=== PATIENT | female | born 1940 | race Caucasian/White ===

== ENCOUNTER 2016-06-20 16:48 | Inpatient (IN) ==
[2016-06-20] MEDS ORDERED: 0.9 % Sodium Chloride 1,000 ML IVC ONE (17:07)
[2016-06-20] MEDS ORDERED: Ipratropium/Albuterol Neb 3 ML IH ONE (17:08)
[2016-06-20 17:28] LABS: Hematocrit 38.7 % (35.3-44.9); Mean Corpuscular HGB Conc 33.6 g/dL (31.6-35.5); Mean Corpuscular Hemoglobin 31.1 pg (28.0-33.3); Mean Corpuscular Volume 92.6 fL (83.0-100.0); Mean Platelet Volume 10.5 fL (9.4-12.4); Platelet Count 260 K/mcL (140-400); Red Blood Count 4.18 M/mcL (3.82-4.97); Red Cell Distribution Width 12.5 % (11.5-14.5)
--- NOTE | 2016-06-20 17:29 | Emergency Department Note ---
Disposition Clinical Impression: Hypoxia Pneumonia Qualifiers: Pneumonia type: due to unspecified organism Laterality: bilateral Lung location : upper lobe of lung Qualified Code(s): J18.9 - Pneumonia, unspecified organism Disposition: Admitted As Inpatient Condition: Fair Referrals: Cornelius Parks MD [Primary Care Provider] - Forms: ED Satisfaction Letter General Adult HPI - General Chief complaint: ED Altered Mental Status Stated complaint: ZEB, AMS Source: patient Mode of arrival: wheelchair Limitations: no limitations Nursing Notes Reviewed: Yes Vital Signs Reviewed: Yes - History of Present Illness HPI Narrative: 75-year-old female who reports she has had 4 days of worsening shortness of breath, cough, purulent sputum. She says that she thinks she has pneumonia. She has not seen a primary care provider for this and is not on antibiotics. She has a medical history significant for COPD, hypertension, chronic pain. She denies having a fever but has said that she has felt chilled. She denies any change in her bowel movements or difficulty urinating. Radiation: non-radiation Pain Scale: 0 Consistency: constant Improves with: nothing Worsens with: other Associated symptoms: Reports: denies other symptoms Treatments Prior to Arrival: none (Exertion) - Related Data Home Medications Medication Instructions Recorded Confirmed Lisinopril 12/18/14 02/28/15 Proair Hfa 12/18/14 02/28/15 Synthroid 12/18/14 02/28/15 LORazepam 02/28/15 02/28/15 Previous Rx's Medication Instructions Recorded Doxycycline 100 mg PO BID #14 capsule 08/20/15 GuaiFENesin ER [Mucinex] 1,200 mg PO BID #20 tbbp.12hr 08/20/15 PredniSONE [Prednisone] 60 mg PO DAILY 5 Days 08/20/15 Benzonatate [Tessalon] 100 - 200 mg PO TID PRN #40 capsule 09/11/15 Doxycycline 100 mg PO BID #20 capsule 09/11/15 PredniSONE [Prednisone] See Taper PO DAILY #18 tablet 09/11/15 Doxycycline 100 mg PO BID #20 capsule 09/23/15 PredniSONE [Prednisone] 20 mg PO DAILY #19 tablet 09/23/15 Albuterol Sulfate [Albuterol 2 puff IH QID 2 Days 10/16/15 Inhaler] Doxycycline 100 mg PO BID 10 Days 10/16/15 PredniSONE 20 mg PO BID 5 Days 10/16/15 Benzonatate [Tessalon] 200 mg PO TID PRN #30 capsule 10/29/15 Doxycycline 100 mg PO BID #20 capsule 10/29/15 GuaiFENesin ER [Mucinex] 1,200 mg PO BID #20 tbbp.12hr 10/29/15 PredniSONE [Prednisone] 20 mg PO BID 10 Days 10/29/15 Doxycycline 100 mg PO BID #20 capsule 12/13/15 PredniSONE See Taper PO DAILY #18 tablet 12/13/15 Albuterol Sulfate [Albuterol 2 puff IH QID 2 Days 01/07/16 Inhaler] Doxycycline 100 mg PO BID 10 Days 01/07/16 PredniSONE 20 mg PO BID 5 Days 01/07/16 Allergies Allergy/AdvReac Type Severity Reaction Status Date / Time codeine Allergy Abdominal Verified 02/28/15 17:42 Pain methyl salicylate Allergy Rash Verified 02/28/15 17:42 nalbuphine Allergy Difficulty Verified 02/28/15 17:42 Breathing Opioids-Meperidine and Allergy Difficulty Verified 02/28/15 17:42 Related Breathing penicillin G procaine Allergy Rash Verified 02/28/15 17:42 propoxyphene Allergy Dizziness Verified 02/28/15 17:42 Sulfa (Sulfonamide Allergy Nausea Verified 02/28/15 17:42 Antibiotics) All systems ED: reviewed and negative except as stated. Constitutional: Denies: fever Eyes: Denies: vision change ENT ED: Denies: throat pain Cardiovascular: Denies: chest pain Respiratory: Reports: cough, dyspnea, wheezes Gastrointestinal: Denies: abdominal pain, nausea, vomiting, diarrhea Musculoskeletal: Denies: neck pain Integumentary: Denies: rash Neurological: Denies: headache Endocrine: Reports: fatigue Past Medical History - Past Medical History Medical history: Reports: COPD, hypertension Surgical history: Reports: other (cardiac ablasion) - Social History Smoking Status: Current every day smoker Smokeless Tobacco Status: No Alcohol use: Reports: none Drug use: Reports: none Physical Exam - General Limitations: no limitations General appearance: alert - Head Head exam: atraumatic - Eye Eye exam: Present: normal appearance, PERRL, EOMI - ENT ENT exam: normal exam - Chest Chest inspection: Present: normal inspection - Respiratory Respiratory exam: Present: other (Course lung sounds on the right side. She is not in respiratory distress without accessory muscle use.) - Abdominal Exam Abdominal exam: Present: soft, Non-Tender - Extremities Exam Extremities exam: Present: normal inspection - Back Exam Back exam: Present: normal inspection - Neurological Exam Neurological exam: Present: alert, oriented X3 - Psychiatric Psychiatric exam: Present: normal affect, normal mood - Skin Skin exam: Present: warm, dry Course Course Narrative: 75-year-old female with symptoms concerning for pneumonia with cough, shortness of breath, increased sputum production. On my physical exam she has right sided coarse breath sounds. Her SPO2 and arrival was 80% on room air. She states she is supposed to be on oxygen at home but has not been using it for a long time. She is having dyspnea with exertion. We will obtain blood cultures and a lactate, chest x-ray and likely start antibiotics. Hemodynamically she is mildly tachycardic at about 105 but her blood pressures maintained at 120 systolic. - Reevaluation(s) Reevaluation #1: pneumonia present on CXR. Clinical picture and CXR lead to pneumonia. Will treat with levaquin and admit. Reevaluation #2: Initial blood pressure reading was in triage was rechecked when she got back to a room was 8020 systolic. The initial blood pressure reading we have not been able to repeat since she has been back here. She also has had improvement in her heart rate. I do not believe that this was accurate pressure obtained in triage. Vital Signs Temperature 98.2 F 06/20/16 16:49 Pulse Rate 109 06/20/16 16:49 Respiratory Rate 18 06/20/16 16:49 Blood Pressure 88/47 06/20/16 16:49 O2 Sat by Pulse Oximetry 85 L 06/20/16 16:49 Temperature 98.2 F 06/20/16 16:49 Pulse Rate 89 06/20/16 18:05 Respiratory Rate 18 06/20/16 18:05 Blood Pressure 111/52 06/20/16 18:05 O2 Sat by Pulse Oximetry 96 06/20/16 18:05 Oxygen Delivery Oxygen Delivery Nasal Cannula Medical Decision Making - Medical Records Medical records reviewed: Yes I reviewed the patient's medical records. - Lab Data Lab results reviewed: Yes I reviewed the patient's lab results. Result diagrams: 06/20/16 17:19 06/20/16 17:19 Lab Results 0206/20/16 06/20/16 Range/Units 17:19 17:19 17:19 WBC 9.8 (4.3-11.1) K/mcL RBC 4.18 (3.82-4.97) M/mcL Hgb 13.0 (11.5-15.4) g/dL Hct 38.7 (35.3-44.9) % MCV 92.6 (83.0-100.0) fL MCH 31.1 (28.0-33.3) pg MCHC 33.6 (31.6-35.5) g/dL RDW 12.5 (11.5-14.5) % Plt Count 260 (140-400) K/mcL MPV 10.5 (9.4-12.4) fL Seg Neutrophils % 34.0 % Band Neutrophils % 30.0 H (0-4) % Lymphocytes % 28.0 % Monocytes % 4.0 % Metamyelocytes % 4.0 H (0) % Neutrophils # 6.3 (1.6-8.9) K/mcL Lymphocytes # 2.7 (0.6-4.6) K/mcL Monocytes # 0.4 (0.0-1.3) K/mcL Reactive Lymphocytes Present A (Not Present) Platelet Estimate Normal (Normal) PT 12.3 H (9.4-12.1) Seconds INR 1.1 APTT 32.0 (26.0-36.0) Seconds Sodium 134 L (136-145) mEq/L Potassium 3.7 (3.5-4.5) mEq/L Chloride 98 (98-109) mEq/L Carbon Dioxide 24 (19-29) mEq/L BUN 24 H (7-20) mg/dL Creatinine 0.94 (0.57-1.11) mg/dL Est GFR ( Amer) > 60 (> 60) Est GFR (Non-Af Amer) 58 L (> 60) BUN/Creatinine Ratio 26 (6-26) Glucose 186 H (70-99) mg/dL Calculated Osmolality 287 (280-300) Lactic Acid (0.5-2.2) mmol/L Calcium 9.1 (8.6-10.8) mg/dL Magnesium 1.6 (1.6-2.6) mg/dL Troponin I (0-0.03) ng/mL 06/20/16 06/20/16 Range/Units 17:19 17:19 WBC (4.3-11.1) K/mcL RBC (3.82-4.97) M/mcL Hgb (11.5-15.4) g/dL Hct (35.3-44.9) % MCV (83.0-100.0) fL MCH (28.0-33.3) pg MCHC (31.6-35.5) g/dL RDW (11.5-14.5) % Plt Count (140-400) K/mcL MPV (9.4-12.4) fL Seg Neutrophils % % Band Neutrophils % (0-4) % Lymphocytes % % Monocytes % % Metamyelocytes % (0) % Neutrophils # (1.6-8.9) K/mcL Lymphocytes # (0.6-4.6) K/mcL Monocytes # (0.0-1.3) K/mcL Reactive Lymphocytes (Not Present) Platelet Estimate (Normal) PT (9.4-12.1) Seconds INR APTT (26.0-36.0) Seconds Sodium (136-145) mEq/L Potassium (3.5-4.5) mEq/L Chloride (98-109) mEq/L Carbon Dioxide (19-29) mEq/L BUN (7-20) mg/dL Creatinine (0.57-1.11) mg/dL Est GFR ( Amer) (> 60) Est GFR (Non-Af Amer) (> 60) BUN/Creatinine Ratio (6-26) Glucose (70-99) mg/dL Calculated Osmolality (280-300) Lactic Acid 1.2 (0.5-2.2) mmol/L Calcium (8.6-10.8) mg/dL Magnesium (1.6-2.6) mg/dL Troponin I 0.03 (0-0.03) ng/mL - Radiology Data Radiology results reviewed: Yes I reviewed the patient's radiology results. - EKG Data EKG #1 EKG attestation: Yes I reviewed and interpreted this EKG. EKG shows normal: sinus rhythm (100) Rate: tachycardia Enigma/QRS: normal Interpretation: other (Prior EKG demonstrates diffuse T-wave inversions which were present in the inferior and anterior lateral leads. This appears to be resolved with her most current EKG) Critical Care Time Critical Care Time: Yes Total Critical Care Time: 35 Attestation: Critical care time 35 minutes managing patient's pneumonia and hypoxia. Attestation Statement - Attestation Attestation: Patient was seen with resident physician. I reviewed the history, physical, assessment and plan, and agree with the findings. I also personally evaluated this patient and had [id number] time with this patient. 75-year-old female presents to emergency department with cough sputum production and shortness of breath. She says the symptoms are getting worse for the last couple days. She is not actually checked for fever but she says she has felt chilled. She is concerned she might have pneumonia. She did say she has had the pneumonia shot this year. She denies abdominal symptoms or nausea or vomiting. Patient notes that she was told by a photographer apprentice about a year ago that she no longer needed her home O2. On examination initial vital signs patient was significantly hypoxic. ENT is unremarkable. Lungs show crackles throughout with good air exchange. Heart is regular rhythm and rate. Abdomen is soft and nontender. Extremity is unremarkable. Neurologically patient is alert and oriented. Chest x-ray revealed bilateral pneumonia. The lab tests did not show significant abnormalities. EKG also did not show acute changes. Patient was started on IV antibiotics, blood cultures were drawn. Hospitalist was notified for need for admission for auction therapy as well as IV antibiotics for community-acquired pneumonia. Hospitalization was arranged. I agree with the resident physician assessment and plan.
[2016-06-20 17:41] LABS: BUN/Creatinine Ratio 26 (6-26); Blood Urea Nitrogen 24 mg/dL (7-20); Calcium 9.1 mg/dL (8.6-10.8); Carbon Dioxide 24 mEq/L (19-29); Chloride 98 mEq/L (98-109); Glucose 186 mg/dL (70-99); INR 1.1; Magnesium 1.6 mg/dL (1.6-2.6); Osmolality,Calculated 287 (280-300); Potassium 3.7 mEq/L (3.5-4.5); Prothrombin Time 12.3 Seconds (9.4-12.1); Sodium 134 mEq/L (136-145); eGFR For African Americans > 60 (> 60); eGFR For Non-African Americans 58 (> 60)
[2016-06-20] MEDS ORDERED: Levofloxacin 750 MG/150 ML 750 MG/150 ML BAG IVPB ONE (17:45)
[2016-06-20 18:04] LABS: Lymphocytes # 2.7 K/mcL (0.6-4.6); Monocytes # 0.4 K/mcL (0.0-1.3); Neutrophils # 6.3 K/mcL (1.6-8.9); Platelet Estimate Normal (Normal); Reactive Lymphocytes Present (Not Present)
[2016-06-20] MEDS ORDERED: Acetaminophen 325 MG TABLET PO PRN (19:33)
[2016-06-20] MEDS ORDERED: Ondansetron 4 MG/2 ML VIAL IVP PRN (19:33)
[2016-06-20] MEDS ORDERED: Naloxone 0.4 MG/ML INJ IVP PRN (19:33)
[2016-06-20] MEDS ORDERED: Ipratropium/Albuterol Neb 3 ML IH PRN (19:59)
[2016-06-20] MEDS ORDERED: GuaiFENesin Liq 200 MG/10 ML UDC PO PRN (20:00)
--- NOTE | 2016-06-20 20:14 | Internal Med History&Physical ---
Date of Encounter: 06/20/16 Time of Encounter: 19:00 Assessment and Plan (1) Change in mental status Current visit: Yes Status: Resolved Likely secondary to underlying PNA Mental status back to baseline, however generalized weakness persists due to PNA continue treatment as listed below Qualifiers: Altered mental status type: unspecified Qualified Code(s): R41.82 - Altered mental status, unspecified (2) Community acquired pneumonia Current visit: Yes Status: Acute CXR consistent with PNA Given the bandemia will treat with abx continue Levaquin monitor O2 saturation O2 supplementation as needed follow up blood cultures (3) COPD (chronic obstructive pulmonary disease) Current visit: Yes Status: Chronic Not in acute exacerbation Will continue home medications after verification Continue bronchodilators as needed continue to monitor O2 sat O2 supplementation as needed Qualifiers: COPD type: unspecified COPD Qualified Code(s): J44.9 - Chronic obstructive pulmonary disease, unspecified (4) Hypertension Current visit: Yes Status: Chronic BP within acceptable range Will restart home medications after verification Qualifiers: Hypertension type: essential hypertension Qualified Code(s): I10 - Essential (primary) hypertension (5) Hypothyroidism Current visit: Yes Status: Chronic continue home medications Qualifiers: Hypothyroidism type: unspecified Qualified Code(s): E03.9 - Hypothyroidism , unspecified (6) Hyperglycemia Current visit: Yes Status: Acute No documented history of DM Last A1C in Feb 2016: 5.6 Will repeat A1C in am continue to monitor blood glucose (7) Cigarette smoker Current visit: Yes Status: Chronic Smoking cessation counseling provided patient not ready to quit at this time refused nicotine replacement therapy (8) DVT prophylaxis Current visit: Yes Status: Acute Heparin SQ Internal Medicine - H&P: HPI Chief complaint: shortness of breath, change in mental status Admitted From: Home Plans for Post Hospital Care: Home History of present illness: Ms. Mckeon is a 75 year old female with PMH of hypertension, COPD, hypothyroidism who presents to the ER for evaluation of shortness of breath, change in mental status. Patient is AAO x 3 and resting in bed but appears to be very weak due to which history was obtained from the son present at bedside. He states that the patient's grandson lives with her and he has been noticing her to be weak and confused over the weak. Patient reported of feeling sick along with cough and congestion. Prior to last week, she is independent, still works and drives. She has home oxygen but does not use it. As per son, patient was noted to be severely short of breath and confused earlier today which prompted her visit to the ER. AT this time, patient states she feels very cold but denies any headache, chest pain, sob, abd pain, n/v, fever at this time. She is an every day smoker. Past Med Surg Social Fam HX - Past Medical History Medical history: COPD, hypertension - Past Surgical History Surgical History: other (cardiac ablasion) - Social History Smoking Status: Current every day smoker Smokeless Tobacco Status: No Alcohol use: none Drug use: none Internal Medicine - H&P: Meds Lisinopril 12/18/14 [History] Proair Hfa 12/18/14 [History] Synthroid 12/18/14 [History] LORazepam 02/28/15 [History] Doxycycline 100 mg PO BID #14 capsule 08/20/15 [Rx] GuaiFENesin ER [Mucinex] 1,200 mg PO BID #20 tbbp.12hr 08/20/15 [Rx] PredniSONE [Prednisone] 60 mg PO DAILY 5 Days 08/20/15 [Rx] Benzonatate [Tessalon] 100 - 200 mg PO TID PRN #40 capsule 09/11/15 [Rx] Doxycycline 100 mg PO BID #20 capsule 09/11/15 [Rx] PredniSONE [Prednisone] See Taper PO DAILY #18 tablet 09/11/15 [Rx] Doxycycline 100 mg PO BID #20 capsule 09/23/15 [Rx] PredniSONE [Prednisone] 20 mg PO DAILY #19 tablet 09/23/15 [Rx] Albuterol Sulfate [Albuterol Inhaler] 2 puff IH QID 2 Days 10/16/15 [Rx] Doxycycline 100 mg PO BID 10 Days 10/16/15 [Rx] PredniSONE 20 mg PO BID 5 Days 10/16/15 [Rx] Benzonatate [Tessalon] 200 mg PO TID PRN #30 capsule 10/29/15 [Rx] Doxycycline 100 mg PO BID #20 capsule 10/29/15 [Rx] GuaiFENesin ER [Mucinex] 1,200 mg PO BID #20 tbbp.12hr 10/29/15 [Rx] PredniSONE [Prednisone] 20 mg PO BID 10 Days 10/29/15 [Rx] Doxycycline 100 mg PO BID #20 capsule 12/13/15 [Rx] PredniSONE See Taper PO DAILY #18 tablet 12/13/15 [Rx] Albuterol Sulfate [Albuterol Inhaler] 2 puff IH QID 2 Days 01/07/16 [Rx] Doxycycline 100 mg PO BID 10 Days 01/07/16 [Rx] PredniSONE 20 mg PO BID 5 Days 01/07/16 [Rx] Allergies codeine Allergy (Verified 02/28/15 17:42) Abdominal Pain methyl salicylate Allergy (Verified 02/28/15 17:42) Rash nalbuphine Allergy (Verified 02/28/15 17:42) Difficulty Breathing Opioids-Meperidine and Related Allergy (Verified 02/28/15 17:42) Difficulty Breathing penicillin G procaine Allergy (Verified 02/28/15 17:42) Rash propoxyphene Allergy (Verified 02/28/15 17:42) Dizziness Sulfa (Sulfonamide Antibiotics) Allergy (Verified 02/28/15 17:42) Nausea All Systems PM: A 10-system review of systems was performed and is negative for pertinent findings except as documented above in the HPI. - Constitutional Constitutional: as per HPI - Constitutional Vitals: Temp Pulse Resp BP Pulse Ox 98.4 F 82 18 107/56 90 L 06/20/16 19:53 06/20/16 19:53 06/20/16 19:53 06/20/16 19:53 06/20/16 19:53 General appearance: Present: cooperative, A&O X 3 (frail, weak), no acute distress, answers questions appropriately - Head Head exam: Present: atraumatic, normocephalic - Eye Eye exam: Present: conjuntiva pink, sclera anicteric - Respiratory Respiratory exam: Absent: respiratory distress, wheezes (coarse breath sounds bilaterally) - Cardiovascular Cardiovascular exam: Present: RRR, +S1, +S2 - GI/Abdominal GI/Abdominal exam: Present: normal bowel sounds, soft. Absent: distended, tenderness - Extremities Exam Extremities exam: Present: warm, radial pulses palpable and symetrical. Absent : calf tenderness, pedal edema, tenderness - Neurological Exam Neurological exam: Present: alert, oriented X3, no focal deficits - Psychiatric Psychiatric exam: Present: normal affect, normal mood Internal Med - H&P Results - Labs CBC & Chem 7: 06/20/16 17:19 06/20/16 17:19
[2016-06-20] MEDS: Ipratropium/Albuterol Neb 3 ML IH SCH (22:34)
[2016-06-20] MEDS: *HR* HYDROcodone/Acet 5/325 mg TABLET PO PRN (23:09)
[2016-06-20] MEDS: 0.9 % Sodium Chloride 1,000 ML IVC SCH (23:10)
[2016-06-20] MEDS: traZODone 50 MG TABLET PO SCH (23:10)
[2016-06-21 03:22] LABS: Hemoglobin 11.5 g/dL (11.5-15.4); Mean Corpuscular HGB Conc 32.9 g/dL (31.6-35.5); Mean Corpuscular Hemoglobin 31.1 pg (28.0-33.3); Mean Corpuscular Volume 94.6 fL (83.0-100.0); Mean Platelet Volume 10.5 fL (9.4-12.4); Platelet Count 235 K/mcL (140-400); Red Cell Distribution Width 12.6 % (11.5-14.5)
[2016-06-21 03:31] LABS: Hemoglobin A1C 5.5 %
[2016-06-21 03:47] LABS: BUN/Creatinine Ratio 28 (6-26); Blood Urea Nitrogen 22 mg/dL (7-20); Calcium 8.3 mg/dL (8.6-10.8); Carbon Dioxide 26 mEq/L (19-29); Chloride 103 mEq/L (98-109); Glucose 76 mg/dL (70-99); Magnesium 1.6 mg/dL (1.6-2.6); Osmolality,Calculated 288 (280-300); Phosphorous 2.4 mg/dL (2.3-4.7); Potassium 3.4 mEq/L (3.5-4.5); Sodium 138 mEq/L (136-145); eGFR For African Americans > 60 (> 60); eGFR For Non-African Americans > 60 (> 60)
[2016-06-21] MEDS: Ipratropium/Albuterol Neb 3 ML IH SCH ×4 (03:48→22:24)
[2016-06-21 03:51] LABS: Large Platelets Present (Not Present); Lymphocytes # 3.6 K/mcL (0.6-4.6); Monocytes # 0.5 K/mcL (0.0-1.3); Neutrophils # 4.1 K/mcL (1.6-8.9); Platelet Clumps Few (Not Present); Toxic Granulation Present (Not Present)
[2016-06-21 03:52] LABS: Reactive Lymphocytes Present (Not Present)
[2016-06-21] MEDS: *HR* Heparin 5,000 UNIT/ML VIAL SQ SCH ×2 (07:22→17:47)
[2016-06-21] MEDS: 0.9 % Sodium Chloride 1,000 ML IVC SCH ×2 (07:22→17:49)
[2016-06-21] MEDS ORDERED: Levofloxacin 500 MG/100 ML 500 MG/100 ML BAG IVPB SCH (09:00)
[2016-06-21] MEDS ORDERED: *HR* HYDROcodone/Acet 5/325 mg TABLET PO PRN (12:06)
--- NOTE | 2016-06-21 12:08 | Internal Med Progress Note ---
Date of Encounter: 06/21/16 Time of Encounter: 12:08 - Assessment and plan (1) Community acquired pneumonia Current Visit: Yes Status: Acute Assessment and plan: Cultures are so far negative. We will send sputum for culture. Continue levofloxacin. Moderate risk for complications. (2) Hyperglycemia Current Visit: Yes Status: Resolved Assessment and plan: This has resolved. A1c level is 5.5%. (3) Hypoxia Current Visit: Yes Status: Acute Assessment and plan: Likely from pneumonia. Incentive spirometry. Wean FiO2 as tolerated. Will evaluate for home oxygen prior to discharge. (4) COPD (chronic obstructive pulmonary disease) Current Visit: Yes Status: Chronic Assessment and plan: Not in acute exacerbation. Continue nebulizer treatments as needed. Qualifiers: COPD type: unspecified COPD Qualified Code(s): J44.9 - Chronic obstructive pulmonary disease, unspecified (5) Cigarette smoker Current Visit: Yes Status: Chronic (6) Hypertension Current Visit: Yes Status: Chronic Assessment and plan: Well-controlled Qualifiers: Hypertension type: essential hypertension Qualified Code(s): I10 - Essential (primary) hypertension (7) Change in mental status Current Visit: Yes Status: Resolved Assessment and plan: This has resolved Qualifiers: Altered mental status type: unspecified Qualified Code(s): R41.82 - Altered mental status, unspecified (8) DVT prophylaxis Current Visit: Yes Status: Acute Assessment and plan: Subcutaneous heparin - Subjective Interval history: Patient is feeling better today. Still requiring O2 supplementation. Continues to have cough. There is blood tinged sputum. Also complains of pleuritic pain in her lower ribs on the right side. - Constitutional Vitals: Temp Pulse Resp BP Pulse Ox 97.2 F L 82 16 108/63 98 06/21/16 10:47 06/21/16 10:47 06/21/16 10:58 06/21/16 10:47 06/21/16 10:58 General appearance: Present: cooperative, A&O X 3, no acute distress, answers questions appropriately - Neck Neck exam general surgery: Present: supple, trachea midline. Absent: lymphadenopathy - Respiratory Respiratory exam: Present: prolonged expiratory phase. Absent: accessory muscle use, rales, rhonchi, wheezes - Cardiovascular Cardiovascular exam: Present: RRR, +S1, +S2. Absent: diastolic murmur, gallop, rubs, systolic murmur - GI/Abdominal GI/Abdominal exam: Present: normal bowel sounds, soft, no peritoneal signs. Absent: distended, tenderness - Extremities Exam Extremities exam: Present: warm, radial pulses palpable and symetrical. Absent : calf tenderness, cyanotic, pedal edema - Neurological Exam Neurological exam: Present: alert, oriented X3, no focal deficits. Absent: facial droop, speech deficit Internal Medicine: Result - Labs CBC & Chem 7: 06/21/16 02:51 06/21/16 02:51 Labs: Short CBC 06/21/16 Range/Units 02:51 WBC 8.1 (4.3-11.1) K/mcL Hgb 11.5 D (11.5-15.4) g/dL Hct 35.0 L (35.3-44.9) % Plt Count 235 (140-400) K/mcL Neutrophils # 4.1 (1.6-8.9) K/mcL BMP 06/21/16 02:51 Sodium 138 Potassium 3.4 L Chloride 103 Carbon Dioxide 26 BUN 22 H Creatinine 0.79 Glucose 76 Calcium 8.3 L - ABG Interpretation ABG results: PT/INR, D-dimer PT 12.3 Seconds (9.4-12.1) H 06/20/16 17:19 Consult Discharge Plan - Plan Referrals: Cornelius Parks MD [Primary Care Provider] - - Attending Attestation This document has been at least partially created by [email or web address] recognition technology by Dr. Brooke. Errors in grammar, wording or other phrases may exist. If errors are found after the documentation is signed, they will be addressed individually in the addendum section of this document when appropriate.
[2016-06-21] MEDS: Aspirin Enteric Coated 81 MG Tablet PO SCH (13:30)
[2016-06-21] MEDS: Lisinopril 20 MG TABLET PO SCH (13:30)
[2016-06-21] MEDS: hydroCHLOROthiazide 25 MG TABLET PO SCH (13:30)
[2016-06-21 16:52] LABS: Bilirubin,Urine Negative (Negative); Blood,Urine Large (Negative); Clarity,Urine Clear (Clear); Color,Urine Yellow (Yellow); Glucose,Urine (UA) 100 mg/dL (Normal); Ketones,Urine Negative (Negative); Leukocyte Esterase,Urine Negative (Negative); Nitrite,Urine Negative (Negative); Protein,Urine Negative (Neg-Trace); Specific Gravity,Urine 1.012 (1.010-1.025); Urobilinogen,Urine Normal (Normal)
[2016-06-21 16:54] LABS: Hyaline Casts,Urine None Seen per lpf (None-Few); WBC,Urine 0-3 per hpf (0-3)
[2016-06-21 17:05] LABS: RBC,Urine 15-30 per hpf (0-3); Squamous Epithelial Cell,Urine Few per lpf (None-Few)
[2016-06-21 17:06] LABS: Bacteria,Urine Few per hpf (None-Few)
[2016-06-21] MEDS: traZODone 50 MG TABLET PO SCH (20:42)
[2016-06-21] MEDS: *HR* HYDROcodone/Acet 5/325 mg TABLET PO PRN (20:46)
[2016-06-22] MEDS: 0.9 % Sodium Chloride 1,000 ML IVC SCH ×4 (00:26→22:38)
[2016-06-22] MEDS: Ipratropium/Albuterol Neb 3 ML IH SCH ×5 (03:40→22:10)
[2016-06-22] MEDS: *HR* Heparin 5,000 UNIT/ML VIAL SQ SCH ×2 (06:11→22:38)
[2016-06-22] MEDS: Lisinopril 20 MG TABLET PO SCH (09:29)
[2016-06-22] MEDS: hydroCHLOROthiazide 25 MG TABLET PO SCH (09:29)
[2016-06-22] MEDS: Aspirin Enteric Coated 81 MG Tablet PO SCH (09:29)
--- NOTE | 2016-06-22 09:45 | Discharge Summary ---
Date of Encounter: 06/22/16 Time of Encounter: 08:00 - Discharge Diagnosis (1) Community acquired pneumonia Priority: Primary Status: Acute (2) Hyperglycemia Priority: Secondary Status: Resolved (3) Hypoxia Priority: Secondary Status: Acute (4) COPD (chronic obstructive pulmonary disease) Priority: Secondary Status: Chronic Qualifiers: COPD type: COPD with acute lower respiratory infection Qualified Code(s): J44.0 - Chronic obstructive pulmonary disease with acute lower respiratory infection (5) Cigarette smoker Priority: Secondary Status: Chronic (6) Hypertension Priority: Secondary Status: Chronic Qualifiers: Hypertension type: essential hypertension Qualified Code(s): I10 - Essential (primary) hypertension (7) DVT prophylaxis Priority: Secondary Status: Acute (8) Altered mental status Priority: Secondary Status: Acute Comments: From pneumonia Qualifiers: Altered mental status type: transient alteration of awareness Qualified Code(s): R40.4 - Transient alteration of awareness - Discharge Medications Prescriptions: Levofloxacin 750 mg PO DAILY #10 tablet Home Medications: Albuterol Sulfate [Proair Hfa] 1 puff IH BID 06/20/16 [History] Aspirin Enteric Coated [Aspirin EC] 81 mg PO QAM 06/20/16 [History] Calcium Carbonate/Vitamin D3 [Calcium 600 + Vit D Tablet] 1 tab PO BID 06/20/16 [History] Diphenhydramine HCl [Restfully Sleep] 25 mg PO BID 06/20/16 [History] Docusate Sodium [Stool Softener] 100 mg PO BID 06/20/16 [History] Ferrous Sulfate [Iron] 325 mg PO BID 06/20/16 [History] Fluticasone/Salmeterol [Advair 250-50 Diskus] 1 puff IH BID 06/20/16 [History] HYDROcodone/Acet 5/325 mg [[place] 5-325 mg] 1 tab PO Q8HR PRN 06/20/16 [History] Hydrochlorothiazide 25 mg PO DAILY 06/20/16 [History] LORazepam [Ativan] 1 mg PO BID 06/20/16 [History] Levothyroxine [Synthroid] 112 mcg PO QDPC 06/20/16 [History] Lisinopril [Zestril] 20 mg PO DAILY 06/20/16 [History] Multivit-Min/FA/Lycopen/Lutein [Centrum Silver Tablet] 1 tab PO QDPC 06/20/16 [ History] Omeprazole Magnesium [Prilosec Otc] 20 mg PO BID 06/20/16 [History] TraZODone 100 mg PO HS PRN 06/20/16 [History] Alendronate Sodium [Fosamax] 70 mg PO QWEEK 06/21/16 [History] Ipratropium/Albuterol Neb [Duoneb] 3 ml IH Q6HR 06/21/16 [History] Levofloxacin 750 mg PO DAILY #10 tablet 06/22/16 [Rx] Allergies/Adverse Reactions: Allergies codeine Allergy (Verified 02/28/15 17:42) Abdominal Pain methyl salicylate Allergy (Verified 02/28/15 17:42) Rash nalbuphine Allergy (Verified 02/28/15 17:42) Difficulty Breathing Opioids-Meperidine and Related Allergy (Verified 02/28/15 17:42) Difficulty Breathing penicillin G procaine Allergy (Verified 02/28/15 17:42) Rash propoxyphene Allergy (Verified 02/28/15 17:42) Dizziness Sulfa (Sulfonamide Antibiotics) Allergy (Verified 02/28/15 17:42) Nausea Date of admission: 06/20/16 18:21 Primary care physician: Cornelius Parks MD Consults: 06/22/16 09:40 Consult to Staff Nurse [CONS] Routine Reason for SW Consult: Home oxygen Discharging clinician: Marc Brooke Anticipated date of discharge: 06/22/16 - Patient Status Disposition: Home, Self-Care Condition: Good Functional capacity at discharge: independent ambulation Overall status at discharge: patient is progressing back to baseline - Discharge Instructions Follow Up With: Luis Bynum MD [Partnered Physician] - 06/30/16 2:00 pm - Diet and Activity Activity: wear oxygen at all times Diet: low fat, low cholesterol, low salt diet Hospital course: Ms. Mckeon is a 75 year old female with history of COPD he was admitted here after presented with some confusion and was diagnosed with pneumonia involving bilateral upper lobes as her chest x-ray showed patchy infiltrates in the upper lobes. She was treated for this with levofloxacin with good improvement in her symptoms. She did not have symptoms or signs of acute COPD. Her altered mental status resolved soon after presentation. She is now doing much better and is stable to be discharged home. She does have home oxygen but she only uses it as needed. She is recommended to use it all the time for his COPD. She will follow up with her primary care provider and will need a repeat chest x -ray to look for resolution of her pain status. Otherwise she may need further workup including pulmonology consult. Patient does use home oxygen but only at bedtime. She was evaluated here [id number] and also was evaluated for home oxygen. Her room air sats were 86% with minimal walking. She does require continuous home oxygen at 4 L/m and prescription for the same has been provided to the patient. - Time Spent with Patient Total time spent providing and/or coordinating discharge services: Less than 30 minutes (25 min) - Constitutional Vitals: Temp Pulse Resp BP Pulse Ox 97.9 F 92 15 133/67 95 06/22/16 06:53 06/22/16 06:53 06/22/16 06:53 06/22/16 06:53 06/22/16 06:53 General appearance: Present: cooperative, A&O X 3, no acute distress, answers questions appropriately - Respiratory Respiratory exam: Present: prolonged expiratory phase. Absent: accessory muscle use, rales, rhonchi, wheezes - Cardiovascular Cardiovascular exam: Present: RRR, +S1, +S2. Absent: diastolic murmur, gallop, rubs, systolic murmur - GI/Abdominal GI/Abdominal exam: Present: normal bowel sounds, soft, no peritoneal signs. Absent: distended, tenderness - Extremities Exam Extremities exam: Present: warm, radial pulses palpable and symetrical. Absent : calf tenderness, cyanotic, pedal edema - Neurological Exam Neurological exam: Present: alert, no focal deficits. Absent: facial droop, speech deficit - Attending Attestation This document has been at least partially created by [employer] recognition technology by Dr. Brooke. Errors in grammar, wording or other phrases may exist. If errors are found after the documentation is signed, they will be addressed individually in the addendum section of this document when appropriate.
--- NOTE | 2016-06-22 17:25 | Electrocardiograph Report ---
[place] [id number] Test Date: 2016-06-20 Pat Name: Angela Mckeon Department: 104 Room: 3B13 Gender: F [employer]: : 1940 Requested By: Keanu Lutz Order Number: [id number] Reading MD: Kaitlin Romero Measurements Intervals [place] Rate: 100 P: 63 VA: 100 QRS: 81 QRSD: 85 T: 74 QT: 355 QTc: 412 Interpretive Statements SINUS TACHYCARDIA WITH SHORT VA INTERVAL WITH OCCASIONAL SUPRAVENTRICULAR PREMATURE COMPLEXES ABNORMAL RHYTHM ECG Electronically Signed On 06-22-2016 17:24:12 EST by Kaitlin Romero
[2016-06-22 17:50] LABS: ABG PCO2 57 mmHg (35-45); ABG PH 7.35 pH Units (7.32-7.45); ABG PO2 54 mmHg (85-104)
[2016-06-22 17:51] LABS: ABG Base Excess 4.5 mEq/L (-2.0 to 3.0); ABG HCO3 28.2 mEQ/L (21-27); ABG Oxygen Saturation 86 % (95-98); ABG TCO2 33.2 mEq/L (20-26); Blood Gas FiO2 36 %; Blood Gas Liter Flow 4 L/MIN
[2016-06-22] MEDS: traZODone 50 MG TABLET PO SCH (22:37)
[2016-06-22] MEDS ORDERED: *HR* LORazepam 1 MG TABLET PO ONE (22:53)
--- NOTE | 2016-06-22 22:58 | Event Note ---
Date of Encounter: 06/22/16 Time of Encounter: 17:45 Patient became confused this afternoon and so holding discharge. Will get Head CT and ABG.
[2016-06-23] MEDS: Ipratropium/Albuterol Neb 3 ML IH SCH ×4 (04:27→21:15)
[2016-06-23] MEDS: 0.9 % Sodium Chloride 1,000 ML IVC SCH (06:10)
[2016-06-23 08:42] LABS: BUN/Creatinine Ratio 13 (6-26); Calcium 8.1 mg/dL (8.6-10.8); Carbon Dioxide 31 mEq/L (19-29); Chloride 105 mEq/L (98-109); Glucose 99 mg/dL (70-99); Osmolality,Calculated 296 (280-300); Potassium 3.1 mEq/L (3.5-4.5); Sodium 144 mEq/L (136-145); eGFR For African Americans > 60 (> 60); eGFR For Non-African Americans > 60 (> 60)
[2016-06-23 08:43] LABS: Blood Urea Nitrogen 8 mg/dL (7-20)
[2016-06-23] MEDS ORDERED: Levofloxacin 750 MG/150 ML 750 MG/150 ML BAG IVPB SCH (09:00)
[2016-06-23] MEDS: hydroCHLOROthiazide 25 MG TABLET PO SCH (09:23)
[2016-06-23] MEDS: Lisinopril 20 MG TABLET PO SCH (09:24)
[2016-06-23] MEDS: Aspirin Enteric Coated 81 MG Tablet PO SCH (09:24)
[2016-06-23] MEDS: *HR* Heparin 5,000 UNIT/ML VIAL SQ SCH ×2 (16:03→16:07)
--- NOTE | 2016-06-23 16:25 | Internal Med Progress Note ---
Date of Encounter: 06/23/16 Time of Encounter: 12:25 - Assessment and plan (1) Acute on chronic respiratory failure with hypoxia and hypercapnia Current Visit: Yes Status: Acute Assessment and plan: Place on BiPAP, monitor chem and ABG High risk for respiratory failure and need for mechanical intubation Patient is full code (2) COPD exacerbation Current Visit: Yes Status: Acute Assessment and plan: Add prednsone po to current regimen Continue duonebs (3) Altered mental status Current Visit: Yes Status: Resolved Assessment and plan: Lethargic, possibly from hypercapnea, monitor closely Qualifiers: Altered mental status type: transient alteration of awareness Qualified Code(s): R40.4 - Transient alteration of awareness (4) Community acquired pneumonia Current Visit: Yes Status: Acute Assessment and plan: Cultures are so far negative. Continue levofloxacin (5) Hypertension Current Visit: Yes Status: Chronic Assessment and plan: Continue current meds Qualifiers: Hypertension type: essential hypertension Qualified Code(s): I10 - Essential (primary) hypertension (6) Hypothyroidism Current Visit: Yes Status: Chronic Assessment and plan: Continue home dose of synthroid Qualifiers: Hypothyroidism type: unspecified Qualified Code(s): E03.9 - Hypothyroidism , unspecified (7) Hypokalemia Current Visit: Yes Status: Acute Assessment and plan: Replaced, repeat Chem a.m (8) Cigarette smoker Current Visit: Yes Status: Chronic - Subjective Interval history: 75 Y/O F , Tobacco abuse, HTN, COPD admitted and being managed for acute on chronic hypoxic and hypercaneic respiratory failure secondary to CAP She is seen at bedside, lethargic and oriented X3 She is hard of hearing but able to answer questions appropriately Occasionally, she is tangential She denies any complains ABG from yesterday noted for hypercapnea, so Chem was ordered which showed compensatory metabolic alkalosis Patient will be placed on BiPAP, repeat ABG a.m and monitor chem O2 Sat target for now between 90-92, patient is chronically hypoxic - Constitutional Vitals: Temp Pulse Resp BP Pulse Ox 98.3 F 96 20 165/79 98 06/23/16 15:42 06/23/16 15:42 06/23/16 15:42 06/23/16 15:42 06/23/16 15:42 General appearance: Present: cooperative, A&O X 3, no acute distress, answers questions appropriately - Head Head exam: Present: atraumatic, normocephalic - Eye Eye exam: Present: PERRL, conjuntiva pink, sclera anicteric - ENT ENT exam: Present: mucous membranes dry - Neck Neck exam general surgery: Present: normal inspection - Respiratory Respiratory exam: Present: rhonchi, wheezes - Cardiovascular Cardiovascular exam: Present: RRR, +S1, +S2. Absent: tachycardia - GI/Abdominal GI/Abdominal exam: Present: normal bowel sounds, soft, no peritoneal signs. Absent: tenderness - Extremities Exam Extremities exam: Absent: pedal edema - Neurological Exam Neurological exam: Present: alert, oriented X3, no focal deficits. Absent: pronater drift, facial droop, speech deficit - Skin Skin exam: Present: dry Internal Medicine: Result - Labs CBC & Chem 7: 06/21/16 02:51 06/23/16 08:19 Labs: BMP 06/23/16 08:19 Sodium 144 Potassium 3.1 L Chloride 105 Carbon Dioxide 31 H BUN 8 D Creatinine 0.63 Glucose 99 Calcium 8.1 L - ABG Interpretation ABG results: ABG ABG pH 7.35 pH Units (7.32-7.45) 06/22/16 17:44 ABG pCO2 57 mmHg (35-45) H 06/22/16 17:44 ABG pO2 54 mmHg (85-104) L 06/22/16 17:44 ABG O2 Saturation 86 % (95-98) L 06/22/16 17:44 PT/INR, D-dimer PT 12.3 Seconds (9.4-12.1) H 06/20/16 17:19 - Impressions Impressions Head CT 06/22/16 17:37 IMPRESSION: 1. No acute intracranial abnormality. 2. Periventricular and subcortical white matter hypodensities are commonly due to chronic small vessel ischemic change. D/ / Ez Avila MD / Ez Avila MD Interpreting Provider: Ez Avila MD Consult Discharge Plan - Plan Instructions: Levofloxacin (By mouth), Using Oxygen at Home (DC), Chronic Obstructive Pulmonary Disease (DC), Pneumonia (DC) Referrals: Luis Bynum MD [Partnered Physician] - 06/30/16 2:00 pm Prescriptions: Levofloxacin 750 mg PO DAILY #10 tablet
[2016-06-23] MEDS: predniSONE 20 MG TABLET PO SCH (16:41)
[2016-06-23] MEDS: traZODone 50 MG TABLET PO SCH (22:34)
[2016-06-24 04:28] LABS: BUN/Creatinine Ratio 15 (6-26); Blood Urea Nitrogen 9 mg/dL (7-20); Calcium 7.8 mg/dL (8.6-10.8); Carbon Dioxide 33 mEq/L (19-29); Chloride 104 mEq/L (98-109); Glucose 149 mg/dL (70-99); Osmolality,Calculated 299 (280-300); Potassium 3.5 mEq/L (3.5-4.5); Sodium 144 mEq/L (136-145); eGFR For African Americans > 60 (> 60); eGFR For Non-African Americans > 60 (> 60)
[2016-06-24] MEDS: Ipratropium/Albuterol Neb 3 ML IH SCH ×4 (04:47→22:23)
[2016-06-24 05:53] LABS: ABG Base Excess 15.2 mEq/L (-2.0 to 3.0); ABG Oxygen Saturation 98 % (95-98); ABG PH 7.39 pH Units (7.32-7.45); ABG PO2 109 mmHg (85-104); ABG TCO2 45.2 mEq/L (20-26)
[2016-06-24 05:54] LABS: Blood Gas FiO2 38 %
[2016-06-24 05:55] LABS: ABG PCO2 71 mmHg (35-45)
[2016-06-24] MEDS: hydroCHLOROthiazide 25 MG TABLET PO SCH (09:24)
[2016-06-24] MEDS: Aspirin Enteric Coated 81 MG Tablet PO SCH (09:24)
[2016-06-24] MEDS: Lisinopril 20 MG TABLET PO SCH (09:24)
[2016-06-24] MEDS: predniSONE 20 MG TABLET PO SCH (09:24)
[2016-06-24] MEDS: *HR* Heparin 5,000 UNIT/ML VIAL SQ SCH ×2 (09:25→21:43)
[2016-06-24 13:00] LABS: ABG Base Excess 11.4 mEq/L (-2.0 to 3.0); ABG HCO3 37.8 mEQ/L (21-27); ABG Oxygen Saturation 94 % (95-98); ABG PCO2 57 mmHg (35-45); ABG PH 7.43 pH Units (7.32-7.45); ABG PO2 69 mmHg (85-104); ABG TCO2 39.5 mEq/L (20-26)
[2016-06-24 13:01] LABS: Blood Gas Liter Flow 5.5 L/MIN
--- NOTE | 2016-06-24 15:48 | Internal Med Progress Note ---
Date of Encounter: 06/24/16 Time of Encounter: 11:30 - Assessment and plan (1) Acute on chronic respiratory failure with hypoxia and hypercapnia Current Visit: Yes Status: Acute Assessment and plan: IMproved Rpt ABG today High risk for respiratory failure and need for mechanical intubation Transfer to 2A Patient is full code (2) COPD exacerbation Current Visit: Yes Status: Acute Assessment and plan: Continue prednisone po Continue duonebs (3) Altered mental status Current Visit: Yes Status: Resolved Assessment and plan: Resolved Qualifiers: Altered mental status type: transient alteration of awareness Qualified Code(s): R40.4 - Transient alteration of awareness (4) Community acquired pneumonia Current Visit: Yes Status: Acute Assessment and plan: Cultures are so far negative. Continue levofloxacin (5) Hypertension Current Visit: Yes Status: Chronic Assessment and plan: Continue current meds Qualifiers: Hypertension type: essential hypertension Qualified Code(s): I10 - Essential (primary) hypertension (6) Hypothyroidism Current Visit: Yes Status: Chronic Assessment and plan: Continue home dose of synthroid Qualifiers: Hypothyroidism type: unspecified Qualified Code(s): E03.9 - Hypothyroidism , unspecified (7) Hypokalemia Current Visit: Yes Status: Acute Assessment and plan: Improved (8) Cigarette smoker Current Visit: Yes Status: Chronic - Subjective Interval history: 75 Y/O F , Tobacco abuse, HTN, COPD admitted and being managed for acute on chronic hypoxic and hypercapneic respiratory failure secondary to CAP She had hypercapneic respiratory failure and was placed on BiPAP overnight She is seen at bedside having breakfast She is more coherent today She is awake, alert, oriented X3 and able to sit up without support Will repeat ABG in the afternoon, anticipate d/c a.m if numbers remain stable - Constitutional Vitals: Temp Pulse Resp BP Pulse Ox 98.3 F 96 17 130/76 92 L 06/24/16 13:34 06/24/16 13:34 06/24/16 13:34 06/24/16 13:34 06/24/16 13:34 General appearance: Present: cooperative, A&O X 3, no acute distress, answers questions appropriately - Head Head exam: Present: atraumatic, normocephalic - Eye Eye exam: Present: PERRL, conjuntiva pink, sclera anicteric Pupils: Present: PERRL - Neck Neck exam general surgery: Present: supple, trachea midline. Absent: lymphadenopathy - Respiratory Respiratory exam: Present: rhonchi. Absent: rales, wheezes, tachypnea - Cardiovascular Cardiovascular exam: Present: RRR, +S1, +S2. Absent: diastolic murmur, gallop, rubs, systolic murmur - GI/Abdominal GI/Abdominal exam: Present: normal bowel sounds, soft, no peritoneal signs. Absent: distended, tenderness - Extremities Exam Extremities exam: Present: warm, radial pulses palpable and symetrical. Absent : calf tenderness, cyanotic, pedal edema - Neurological Exam Neurological exam: Present: CN II-XII intact, oriented X3, no focal deficits. Absent: pronater drift, facial droop, speech deficit - Skin Skin exam: Present: dry Internal Medicine: Result - Labs CBC & Chem 7: 06/21/16 02:51 06/24/16 03:27 Labs: BMP 06/24/16 03:27 Sodium 144 Potassium 3.5 Chloride 104 Carbon Dioxide 33 H BUN 9 Creatinine 0.61 Glucose 149 H Calcium 7.8 L - ABG Interpretation ABG results: ABG ABG pH 7.43 pH Units (7.32-7.45) 06/24/16 12:45 ABG pCO2 57 mmHg (35-45) H 06/24/16 12:45 ABG pO2 69 mmHg (85-104) L 06/24/16 12:45 ABG O2 Saturation 94 % (95-98) L 06/24/16 12:45 PT/INR, D-dimer PT 12.3 Seconds (9.4-12.1) H 06/20/16 17:19 Consult Discharge Plan - Plan Instructions: Levofloxacin (By mouth), Using Oxygen at Home (DC), Chronic Obstructive Pulmonary Disease (DC), Pneumonia (DC) Referrals: Luis Bynum MD [Partnered Physician] - 06/30/16 2:00 pm
[2016-06-24] MEDS: *HR* HYDROcodone/Acet 5/325 mg TABLET PO PRN (19:45)
[2016-06-24] MEDS: traZODone 50 MG TABLET PO SCH (19:45)
[2016-06-25] MEDS: Ipratropium/Albuterol Neb 3 ML IH SCH ×3 (04:15→16:16)
[2016-06-25] MEDS: Lisinopril 20 MG TABLET PO SCH (08:42)
[2016-06-25] MEDS: Aspirin Enteric Coated 81 MG Tablet PO SCH (08:42)
[2016-06-25] MEDS: hydroCHLOROthiazide 25 MG TABLET PO SCH (08:42)
[2016-06-25] MEDS: predniSONE 20 MG TABLET PO SCH (08:42)
[2016-06-25] MEDS: *HR* Heparin 5,000 UNIT/ML VIAL SQ SCH (08:45)
[2016-06-25 08:46] LABS: Basophils # 0.1 K/mcL (0.0-0.2); Basophils % 0.7 %; Eosinophils # 0.1 K/mcL (0.0-0.6); Eosinophils % 0.6 %; Hematocrit 39.3 % (35.3-44.9); Hemoglobin 12.6 g/dL (11.5-15.4); Immature Granulocytes % 4.3 % (0-4); Lymphocytes # 3.2 K/mcL (0.6-4.6); Lymphocytes % 17.5 %; Mean Corpuscular HGB Conc 32.1 g/dL (31.6-35.5); Mean Corpuscular Hemoglobin 30.4 pg (28.0-33.3); Mean Corpuscular Volume 94.9 fL (83.0-100.0); Mean Platelet Volume 9.4 fL (9.4-12.4); Monocytes # 1.2 K/mcL (0.0-1.3); Monocytes % 6.4 %; Nucleated Red Blood Cells 0.1 /100 WBC (0); Platelet Count 366 K/mcL (140-400); Red Blood Count 4.14 M/mcL (3.82-4.97); Red Cell Distribution Width 12.6 % (11.5-14.5); Segmented Neutrophils % 70.5 %
[2016-06-25 08:47] LABS: Neutrophils # 12.8 K/mcL (1.6-8.9)
[2016-06-25 08:50] LABS: VBG HCO3 44.3 mEq/L (21-27); VBG PH 7.53 pH Units (7.32-7.42)
[2016-06-25 08:58] LABS: BUN/Creatinine Ratio 21 (6-26); Blood Urea Nitrogen 14 mg/dL (7-20); Calcium 8.8 mg/dL (8.6-10.8); Carbon Dioxide 36 mEq/L (19-29); Chloride 100 mEq/L (98-109); Glucose 90 mg/dL (70-99); Osmolality,Calculated 300 (280-300); Potassium 3.3 mEq/L (3.5-4.5); Sodium 145 mEq/L (136-145); eGFR For African Americans > 60 (> 60); eGFR For Non-African Americans > 60 (> 60)
[2016-06-25] MEDS ORDERED: levoFLOXacin 750 MG TABLET PO SCH (09:00)
[2016-06-25 09:09] LABS: Large Platelets Present (Not Present); Platelet Estimate Normal (Normal); Reactive Lymphocytes Present (Not Present); Toxic Granulation Present (Not Present)
--- NOTE | 2016-06-25 12:04 | Physician Discharge Referral ---
Home Health/Hosp Referral Info Transfer to: Home Health Attending Provider: Fernando Lowe Provider in Charge Post Discharge: PCP - Diagnosis (1) Acute on chronic respiratory failure with hypoxia and hypercapnia Priority: Primary Status: Acute (2) COPD exacerbation Priority: Primary Status: Acute (3) Altered mental status Priority: Primary Status: Resolved (4) Community acquired pneumonia Priority: Primary Status: Acute (5) Hypertension Priority: Secondary Status: Chronic (6) Hypothyroidism Priority: Secondary Status: Chronic (7) Hypokalemia Priority: Secondary Status: Resolved (8) Cigarette smoker Priority: Secondary Status: Chronic - Respiratory Orders Oxygen / L per min (2L/minute, titrate to O2Sat of 90--92%) Smoking Cessation: Smoking cessation has been advised. For more information, call the [employer] Quit Line at 5-404-NPZH-NOW. - Diet/Nutrition Diet/Nutrition Orders: Renal, Cardiac - Activity Activity Orders: Up ad jannette - Services Needed Following services are medically necessary services: Home Health Aide, Physical Therapy, Occupational Therapy - Transfer Medications Home Medications: Albuterol Sulfate [Proair Hfa] 1 puff IH BID 06/20/16 [History] Aspirin Enteric Coated [Aspirin EC] 81 mg PO QAM 06/20/16 [History] Calcium Carbonate/Vitamin D3 [Calcium 600 + Vit D Tablet] 1 tab PO BID 06/20/16 [History] Diphenhydramine HCl [Restfully Sleep] 25 mg PO BID 06/20/16 [History] Docusate Sodium [Stool Softener] 100 mg PO BID 06/20/16 [History] Ferrous Sulfate [Iron] 325 mg PO BID 06/20/16 [History] Fluticasone/Salmeterol [Advair 250-50 Diskus] 1 puff IH BID 06/20/16 [History] HYDROcodone/Acet 5/325 mg [[place] 5-325 mg] 1 tab PO Q8HR PRN 06/20/16 [History] Hydrochlorothiazide 25 mg PO DAILY 06/20/16 [History] LORazepam [Ativan] 1 mg PO BID 06/20/16 [History] Levothyroxine [Synthroid] 112 mcg PO QDPC 06/20/16 [History] Lisinopril [Zestril] 20 mg PO DAILY 06/20/16 [History] Multivit-Min/FA/Lycopen/Lutein [Centrum Silver Tablet] 1 tab PO QDPC 06/20/16 [ History] Omeprazole Magnesium [Prilosec Otc] 20 mg PO BID 06/20/16 [History] TraZODone 100 mg PO HS PRN 06/20/16 [History] Alendronate Sodium [Fosamax] 70 mg PO QWEEK 06/21/16 [History] Ipratropium/Albuterol Neb [Duoneb] 3 ml IH Q6HR 06/21/16 [History] Levofloxacin 750 mg PO DAILY #5 tablet 06/25/16 [Rx] PredniSONE 40 mg PO DAILY #3 tablet 06/25/16 [Rx] Allergies/Adverse Reactions: Allergies codeine Allergy (Verified 02/28/15 17:42) Abdominal Pain methyl salicylate Allergy (Verified 02/28/15 17:42) Rash nalbuphine Allergy (Verified 02/28/15 17:42) Difficulty Breathing Opioids-Meperidine and Related Allergy (Verified 02/28/15 17:42) Difficulty Breathing penicillin G procaine Allergy (Verified 02/28/15 17:42) Rash propoxyphene Allergy (Verified 02/28/15 17:42) Dizziness Sulfa (Sulfonamide Antibiotics) Allergy (Verified 02/28/15 17:42) Nausea Certification: Further, I certify that my clinical findings support that this patient is homebound (i.e. absences from home require considerable and taxing effort and are for medical reasons or spiritism services or infrequently or short duration when for other reasons) because: Homebound Reason: Severity of cardiac or pulmonary status limits activity tolerance Attestation: My signature below is to certify that this patient is under my care and that I, or nurse practitioner, or a physician's daycare assistant working with me, has a face-to -face encounter with this patient.
--- NOTE | 2016-06-25 12:12 | Internal Med Progress Note ---
Date of Encounter: 06/25/16 Time of Encounter: 11:00 - Assessment and plan (1) Acute on chronic respiratory failure with hypoxia and hypercapnia Current Visit: Yes Status: Acute Assessment and plan: IMproved (2) COPD exacerbation Current Visit: Yes Status: Acute Assessment and plan: Improved. Will be discharged on po prednsione and levaquin (3) Altered mental status Current Visit: Yes Status: Resolved Assessment and plan: Resolved Qualifiers: Altered mental status type: transient alteration of awareness Qualified Code(s): R40.4 - Transient alteration of awareness (4) Community acquired pneumonia Current Visit: Yes Status: Acute Assessment and plan: Cultures are so far negative. Continue levofloxacin po at home (5) Hypertension Current Visit: Yes Status: Chronic Assessment and plan: Continue current meds Qualifiers: Hypertension type: essential hypertension Qualified Code(s): I10 - Essential (primary) hypertension (6) Hypothyroidism Current Visit: Yes Status: Chronic Assessment and plan: Continue home dose of synthroid Qualifiers: Hypothyroidism type: unspecified Qualified Code(s): E03.9 - Hypothyroidism , unspecified (7) Hypokalemia Current Visit: Yes Status: Resolved (8) Cigarette smoker Current Visit: Yes Status: Chronic - Subjective Interval history: 75 Y/O F , Tobacco abuse, HTN, COPD admitted and being managed for acute on chronic hypoxic and hypercapneic respiratory failure secondary to CAP Hospital stay was complicated by CO2 narcosis and confusion. She was placed on BiPAP and monitored Patient was seen at bedside today She is sitting up in chair out of bed and clinically looks improved She denies new complains and feels "the best" since admission Her mental status is normal, and she is AAOX4 VBG today shows improvement, its likely that patient is a chronic retainer She has new leukocytosis which is possibly due to steroids as patient is afebrile and much improved clinically She is stable for discharge home with services She states immunization is up to date 3 minutes spent on education for tobacco cessation, wishes to self quit - Constitutional Vitals: Temp Pulse Resp BP Pulse Ox 97.7 F 82 15 151/64 95 06/25/16 12:00 06/25/16 12:00 06/25/16 12:00 06/25/16 12:00 06/25/16 12:00 General appearance: Present: cooperative, A&O X 3, no acute distress, answers questions appropriately - Head Head exam: Present: atraumatic, normocephalic - Eye Eye exam: Present: PERRL, conjuntiva pink, sclera anicteric Pupils: Present: PERRL - Neck Neck exam general surgery: Present: supple, trachea midline. Absent: lymphadenopathy - Respiratory Respiratory exam: Present: CTAB. Absent: accessory muscle use, rales, rhonchi, wheezes - Cardiovascular Cardiovascular exam: Present: RRR, +S1, +S2. Absent: diastolic murmur, gallop, rubs, systolic murmur - GI/Abdominal GI/Abdominal exam: Present: normal bowel sounds, soft, no peritoneal signs. Absent: distended, tenderness - Extremities Exam Extremities exam: Present: warm, radial pulses palpable and symetrical. Absent : calf tenderness, cyanotic, pedal edema - Neurological Exam Neurological exam: Present: CN II-XII intact, oriented X3, no focal deficits. Absent: pronater drift, facial droop, speech deficit - Skin Skin exam: Present: dry, intact Internal Medicine: Result - Labs CBC & Chem 7: 06/25/16 08:37 06/25/16 08:37 Labs: Short CBC 06/25/16 Range/Units 08:37 WBC 18.1 H D (4.3-11.1) K/mcL Hgb 12.6 (11.5-15.4) g/dL Hct 39.3 (35.3-44.9) % Plt Count 366 D (140-400) K/mcL Neutrophils # 12.8 H (1.6-8.9) K/mcL BMP 06/25/16 08:37 Sodium 145 Potassium 3.3 L Chloride 100 Carbon Dioxide 36 H BUN 14 Creatinine 0.67 Glucose 90 Calcium 8.8 - ABG Interpretation ABG results: ABG ABG pH 7.43 pH Units (7.32-7.45) 06/24/16 12:45 ABG pCO2 57 mmHg (35-45) H 06/24/16 12:45 ABG pO2 69 mmHg (85-104) L 06/24/16 12:45 ABG O2 Saturation 94 % (95-98) L 06/24/16 12:45 PT/INR, D-dimer PT 12.3 Seconds (9.4-12.1) H 06/20/16 17:19 Consult Discharge Plan - Plan Instructions: Levofloxacin (By mouth), Using Oxygen at Home (DC), Chronic Obstructive Pulmonary Disease (DC), Pneumonia (DC) Referrals: Luis Bynum MD [Partnered Physician] - 06/30/16 2:00 pm Prescriptions: PredniSONE 40 mg PO DAILY #3 tablet
[2016-06-25] MEDS: *HR* HYDROcodone/Acet 5/325 mg TABLET PO PRN (14:53)
[2016-06-25 16:14] VITALS: BP 170/78
== END 2016-06-25 17:45 | disposition home health service (06) | DRG 190 ==
LOC: EMEROO 16:48 → 3BNU 16:48 → SUATTDRO 18:21 → 3BNU 19:34 → 2ANU 06-24 13:30
PROVIDERS: ADMIT Internal Medicine; ATTEND Internal Medicine